=== PATIENT | male | born 1955 | race Caucasian/White ===

== ENCOUNTER 2017-07-18 16:50 | Emergency (ER) | payer SELFPAY ==
[~2017-07-18] VITALS: Ht 180.3 cm; Wt 89.5 kg
[2017-07-18 19:09] LABS: HEMATOCRIT 38.7 % (38.0-50.0); HEMOGLOBIN 12.8 G/DL (12.5-16.6); MCH 31.9 PG (29.0-34.0); MCHC 33.1 G/DL (30.0-36.0); MCV 96.5 FL (86-99); PLATELET COUNT 238 K/uL (156-360); RBC DIS.WIDTH-CV 12.6 % (11.8-14.6); RBC DIS.WIDTH-SD 45.1 % (39-53); RED BLOOD COUNT 4.01 M/uL (4.00-5.50); WHITE BLOOD COUNT 22.5 K/uL (4.1-10.2)
[2017-07-18 19:18] LABS: CHLORIDE 107 mEq/L (99-109); POTASSIUM 3.7 mEq/L (3.7-5.4); SODIUM 139 mEq/L (136-147)
[2017-07-18 19:19] LABS: GLUCOSE 96 mg/dL (70-99)
[2017-07-18 19:23] LABS: CREATININE 0.8 mg/dL (0.6-1.3); GFR ESTIMATE (CALCULATED) > 59 mL/min/ (58.99-99999)
[2017-07-18 19:25] LABS: UREA NITROGEN (BUN) 16 mg/dL (9-23)
[2017-07-18 19:32] LABS: TROP-I INTERPRETATION NEGATIVE; TROPONIN-I < 0.01 ng/mL (0.0-0.30)
[2017-07-18 23:06] LABS: TROP-I INTERPRETATION NEGATIVE; TROPONIN-I < 0.01 ng/mL (0.0-0.30)
[2017-07-19 01:25] VITALS: BP 159/86
== END 2017-07-19 01:27 | disposition home or self-care (01) ==
LOC: EME 16:50
PROVIDERS: Nurse Practitioner Family
DX: R07.2 Precordial pain (principal); D72.829 Elevated white blood cell count, unspecified; J44.9 Chronic obstructive pulmonary disease, unspecified; E78.5 Hyperlipidemia, unspecified; Z87.891 Personal history of nicotine dependence
CPT/HCPCS: 71046; 80048; 84484; 85027; 93005